=== PATIENT | female | born 1965 | race Caucasian/White ===

== ENCOUNTER 2022-10-26 14:30 | Outpatient (CLI) | payer BC, SELFPAY ==
--- NOTE | 2022-10-26 | MR_ITS ---
WS: [id number] MRI HEAD WITH CONTRAST WITH ATTENTION TO THE INTERNAL AUDITORY CANALS TECHNIQUE: Sagittal T1, T2 axial, T2 axial flair, axial susceptibility weighted imaging, axial diffus ion weighted images, and coronal T2 images were obtained. Pre and post T1 axial and post T1 coronal i mages. ADC and FSPGR images. Post gadolinium images with attention to the internal auditory canals. A xial fiesta imaging. CLINICAL INFORMATION: SENS HEARING LOSS COMPARISON: CT neck 2013 FINDINGS: No evidence of restricted diffusion to suggest acute ischemia. Ventricular system and basal cisterns are patent. Mild small vessel changes. No significant parenchymal volume loss. Normal posterior fossa . Normal vascular flow voids at the skull base. No extra-axial fluid collections. No evidence of mass or mass effect. Paranasal sinuses are well aerated. Mastoid air cells. Mild mucosal thickening in th e mastoid tips bilaterally. Sclerotic LEFT mastoid unchanged since the prior CT. Normal posterior nasopharynx. Normal parapharyngeal fat. Visualized orbits are normal. No hemosiderin on the susceptibility weighted images. Proximal 7th and 8th cranial nerves are normal in appearance. No evidence of enhancing IAC or CP angle mass. Normal trigeminal nerve root entry zone s. No abnormal gadolinium enhancement. Normal dural venous sinuses. Normal optic chiasm and pituitary infundibulum. Normal cavernous sinuses and Meckel's cave. MR/MR iac's wo/w con* [id number] IMPRESSION: 1. No evidence of restricted diffusion to suggest acute ischemia. 2. No evidence of enhancing IAC or CP angle mass. Normal proximal 7th and 8th cranial nerves. Normal trigeminal nerve root entry zones. 3. Paranasal sinuses are well aerated. Mild mucosal thickening mastoid tips. S clerotic LEFT mastoid unchanged since the prior neck CT. 4. Mild small vessel changes. No significant parenchymal volume loss. 5. No abnormal gadolinium enhancement.
[2022-10-26] MEDS: gadobenate dimeglumine 20 mL vial IV (15:59)
== END 2022-10-26 14:31 | disposition home or self-care (01) ==
PROVIDERS: Family Provider Nurse Practitioner Family; PCP Nurse Practitioner Family; Visit Provider Specialist
DX: H91.22 Sudden idiopathic hearing loss, left ear (principal)
CPT/HCPCS: 70553; A9577

== ENCOUNTER → 2025-04-06 12:20 | Outpatient (BNVA) | payer BC, SELFPAY | PROVIDERS: Family Provider Nurse Practitioner Family; PCP Nurse Practitioner Family; Visit Provider Emergency Medicine | DX: R39.9 Unspecified symptoms and signs involving the genitourinary system (principal); N30.90 Cystitis, unspecified without hematuria | CPT/HCPCS: 81000; 87086 ==